=== PATIENT | female | born 1985 | race Caucasian/White ===

== ENCOUNTER 2016-12-27 09:09 | Day surgery (SDC) | payer BC ==
[~2016-12-27 09:09] MED LIST: SYNTHROID50 MC1 PO; [UNRECOGNIZED DRUG - OTHER]
== END 2016-12-27 15:15 ==
LOC: SRG 09:09 → SHSC 09:13 → ORE 10:30 → PACU 11:10 → SHSC 11:45
PROC: 0CTPXZZ Resection of Tonsils, External Approach (ICD-10-PCS; principal; 2016-12-27)
DX: J35.01 Chronic tonsillitis (principal); E66.9 Obesity, unspecified; E03.9 Hypothyroidism, unspecified; Z68.42 Body mass index [BMI] 45.0-49.9, adult; Z79.899 Other long term (current) drug therapy; Z91.040 Latex allergy status; Z91.048 Other nonmedicinal substance allergy status; Z90.49 Acquired absence of other specified parts of digestive tract; Z98.890 Other specified postprocedural states

== ENCOUNTER 2016-12-31 22:47 | Emergency (ER) | payer BC ==
[2017-01-01] MEDS ORDERED: NORCO 5-325 TA1 EACH PO (00:51)
[2017-01-02] MEDS ORDERED: HYCET 7.5 MG-3473 M2 PO (09:31)
== END 2017-01-01 01:00 ==
LOC: EDMED 22:47
DX: J95.830 Postprocedural hemorrhage of a respiratory system organ or structure following a respiratory system procedure (principal)

== ENCOUNTER 2017-01-01 18:25 | Day surgery (SDC) | payer BC ==
[~2017-01-01 18:25] MED LIST changes: +NORCO 5-325 TA1 EACH PO
[2017-01-02] MEDS ORDERED: HYCET 7.5 MG-3473 M2 PO (09:31)
--- NOTE | 2017-01-02 10:14 | NUR ---
[facility] DISCHARGE NOTE-DID TEACHING REGARDING DIETARY AND POST TONSILLECTOMY CARE. S/S OF WHEN TO CALL DOCTOR AND FOLLOW UP APPTS. PATIENT WAS ABLE TO DO TEACHBACK. NO OTHER QUESTIONS OR CONCERNS AT THIS TIME
== END 2017-01-02 10:10 ==
LOC: EDMED 18:25 → SRG 21:21 → PACU 22:16 → 5WD 23:05
PROC: 0W33XZZ Control Bleeding in Oral Cavity and Throat, External Approach (ICD-10-PCS; principal; 2017-01-01)
DX: J95.830 Postprocedural hemorrhage of a respiratory system organ or structure following a respiratory system procedure (principal); E66.9 Obesity, unspecified; E03.9 Hypothyroidism, unspecified; Z79.899 Other long term (current) drug therapy; Z90.710 Acquired absence of both cervix and uterus; Z91.048 Other nonmedicinal substance allergy status; Z90.49 Acquired absence of other specified parts of digestive tract; Z90.89 Acquired absence of other organs; Z98.890 Other specified postprocedural states
CPT/HCPCS: J1100; J3010